=== PATIENT | female | born 1980 | race Two or more races ===

== ENCOUNTER 2016-06-23 20:02 | Emergency (ER) | payer SELFPAY ==
[~2016-06-23] VITALS: Ht 167.6 cm; Wt 70.3 kg
[~2016-06-23 20:02] MED LIST: FERR325T50 PO; PREN-96 PO
[2016-06-23 20:55] LABS: Urine RBC None Seen /hpf (0 - 4)
[2016-06-23 21:20] LABS: Urine Bilirubin Negative (Negative); Urine Blood Negative /uL (Negative); Urine Color Colorless (Yellow); Urine Glucose Normal (Normal); Urine Ketone Negative (Negative); Urine Nitrite Negative (Negative); Urine Squamous Epithelial Cell FEW /hpf (<5); Urine Urobilinogen Normal (Negative); Urine pH 6.5 (5.0-8.0)
[2016-06-23 21:20] LABS: Basophils # (auto) 0 uL; Basophils % (auto) 0.7 % (0.0-2.0); Eosinophils # (auto) 0.2 uL; Eosinophils % (auto) 3.4 % (0.0-7.0); Hemoglobin 10.3 g/dL (12.2-16.2); Lymphocytes # (auto) 2.4 uL; Lymphocytes % (auto) 44.9 % (10.0-50.0); Mean Corpuscular Hemoglobin 27.4 pg (28.0-32.0); Mean Corpuscular Hgb Conc. 33.1 g/dL (32.0-36.0); Mean Corpuscular Volume 82.7 fL (80.0-100.0); Mean Platelet Volume 8.9 fL (7.4-10.4); Monocytes # (auto) 0.4 uL; Monocytes % (auto) 7.2 % (0.0-12.0); Neutrophils # (auto) 2.3 uL; Neutrophils % (auto) 43.8 % (37.0-80.0); Platelet Count (auto) 243 10^3/uL (140-450); Red Cell Distribution Width 16.2 % (11.6-16.0); White Blood Cell 5.3 10^3/uL (4.4-10.8)
[2016-06-23 21:30] LABS: BUN/Creatinine Ratio 15.2; Calcium 8.7 mg/dL (8.5-10.1); Potassium 3.9 mmol/L (3.5-5.1)
[2016-06-23 22:44] VITALS: BP 112/69
== END 2016-06-23 22:46 | disposition home or self-care (01) ==
LOC: ER 20:04
DX: K58.9 Irritable bowel syndrome, unspecified (principal); R10.9 Unspecified abdominal pain
CPT/HCPCS: 36415; 74176; 80048; 81001; 81025; 83690; 85025